=== PATIENT | male | born 1935 ===

== ENCOUNTER 2021-11-29 10:04 | Emergency (ER) | payer MEDICARE, OTHER ==
[2021-11-29] MEDS ORDERED: Acetaminophen 325 MG Tab PO ONE (12:27)
== END 2021-11-29 16:56 | disposition home or self-care (01) ==
LOC: JD.ED 10:04
DX: M54.50 Low back pain, unspecified (principal); M25.551 Pain in right hip; I10 Essential (primary) hypertension
CPT/HCPCS: 72100; 73502; 99283; A9270